=== PATIENT | female | born 1965 | race Caucasian/White ===

== ENCOUNTER 2017-03-27 19:07 | Emergency (ER) | payer MEDICAID ==
[~2017-03-27] VITALS: Ht 154.9 cm; Wt 89.4 kg
[~2017-03-27 19:07] MED LIST: ASPI-621 PO; CLON2TAB PO; HYDR25TA6 PO; HYDR50TA3 PO; LORA1TAB PO; METO25TA91 PO; NICO1PAT4 TD; PRAV20TA PO; QUET100T4 PO
[2017-03-27] MEDS ORDERED: ASPIRIN 81 MG TABLET CHEW PO ONE (19:30)
[2017-03-27] MEDS ORDERED: LORazepam 2 MG/ML, 1ML IVPush ONE (19:30)
[2017-03-27] MEDS ORDERED: SODIUM CHLORIDE FLUSH 10ML SYR IVF ONE (19:30)
[2017-03-27] MEDS ORDERED: LORA-446 PO (20:01)
[2017-03-27] MEDS ORDERED: ASPIRIN 81 MG TABLET CHEW ONE ×2 (20:08→21:00)
[2017-03-27] MEDS ORDERED: LORazepam 2 MG/ML, 1ML ONE (20:09)
[2017-03-27 20:32] LABS: BLOOD UREA NITROGEN 11 mg/dL (7-18)
[2017-03-27 20:36] LABS: IS PT STATUS REG ER OR PRE ER? YES
[2017-03-27] MEDS ORDERED: LORazepam 1MG TABLET ONE (21:00)
[2017-03-27] MEDS ORDERED: LORazepam 1MG TABLET PO ONE (21:00)
[2017-03-27 21:04] VITALS: BP 165/105
== END 2017-03-27 21:32 | disposition left against medical advice (07) ==
LOC: ED 20:31
DX: R07.89 Other chest pain (principal); F41.9 Anxiety disorder, unspecified; E78.00 Pure hypercholesterolemia, unspecified; I10 Essential (primary) hypertension; F17.200 Nicotine dependence, unspecified, uncomplicated
CPT/HCPCS: 36415; 71010; 80048; 82040; 84484; 85025; 85610; 93005; 99285

== ENCOUNTER 2017-05-31 20:16 | Emergency (ER) | payer MEDICAID ==
[~2017-05-31] VITALS: Ht 154.9 cm; Wt 88.4 kg
[~2017-05-31 20:16] MED LIST changes: +LORA-446 PO
[2017-05-31 20:19] VITALS: BP 151/92
== END 2017-05-31 20:33 ==
LOC: ED 20:27
DX: Z76.0 Encounter for issue of repeat prescription (principal); F41.9 Anxiety disorder, unspecified; I10 Essential (primary) hypertension; E78.5 Hyperlipidemia, unspecified; Z90.49 Acquired absence of other specified parts of digestive tract
CPT/HCPCS: 99283

== ENCOUNTER 2017-06-25 10:32 | Emergency (ER) | payer MEDICAID ==
[~2017-06-25] VITALS: Ht 154.9 cm; Wt 85.8 kg
[2017-06-25] MEDS ORDERED: SODIUM CHLORIDE 0.9% 1,000 ML IV ONE (11:27)
[2017-06-25] MEDS ORDERED: KETOROLAC 30 MG/1 ML ONE (11:29)
[2017-06-25] MEDS ORDERED: KETOROLAC 30 MG/1 ML IVPush ONE (11:30)
[2017-06-25] MEDS ORDERED: SODIUM CHLORIDE FLUSH 10ML SYR IVF ONE (11:30)
[2017-06-25] MEDS ORDERED: SODIUM CHLORIDE 0.9% 1,000ML IVBOLUS ONE (11:30)
[2017-06-25] MEDS ORDERED: ONDANSETRON 2MG/ML, 2ML ONE (11:30)
[2017-06-25] MEDS ORDERED: ONDANSETRON 2MG/ML, 2ML IVPush ONE (11:30)
[2017-06-25 11:57] LABS: BLOOD UREA NITROGEN 12 mg/dL (7-18)
[2017-06-25 12:03] LABS: ASPARTATE AMINO TRANSFERASE 14 U/L (15-37)
[2017-06-25] MEDS ORDERED: CEFTRIAXONE PMX 1GM/50ML 50 ML ONE (13:16)
[2017-06-25] MEDS ORDERED: CEFTRIAXONE PMX 1GM/50ML 50 ML IV ONE (13:30)
[2017-06-25 13:52] VITALS: BP 107/74
== END 2017-06-25 14:05 | disposition home or self-care (01) ==
LOC: ED 12:31
DX: N30.01 Acute cystitis with hematuria (principal); D72.829 Elevated white blood cell count, unspecified; I10 Essential (primary) hypertension; F17.200 Nicotine dependence, unspecified, uncomplicated; Z90.49 Acquired absence of other specified parts of digestive tract
CPT/HCPCS: 36415; 74020; 80053; 81001; 83690; 84703; 85025; 87077; 87086; 87186; 93005; 96361; 96365; 96375; 99285; J0696; J1885; J2405; J7030

== ENCOUNTER 2017-08-09 20:55 | Emergency (ER) | payer MEDICAID ==
[~2017-08-09] VITALS: Ht 154.9 cm; Wt 88.4 kg
[~2017-08-09 20:55] MED LIST changes: +NICO1PAT13 TD; -NICO1PAT4 TD
[2017-08-09 20:57] VITALS: BP 163/99
== END 2017-08-09 22:44 | disposition left against medical advice (07) ==
LOC: ED 22:38
DX: R50.9 Fever, unspecified (principal); M79.641 Pain in right hand; R07.9 Chest pain, unspecified; Z53.21 Procedure and treatment not carried out due to patient leaving prior to being seen by health care provider
CPT/HCPCS: 93005; 99281

== ENCOUNTER 2017-08-14 21:20 | Emergency (ER) | payer MEDICAID ==
[~2017-08-14] VITALS: Ht 154.9 cm; Wt 87.4 kg
[2017-08-14 21:29] VITALS: BP 163/105
[2017-08-14] MEDS ORDERED: LIDOCAINE 1%, 20ML SQ ONE (22:00)
[2017-08-14] MEDS ORDERED: LIDOCAINE 1%, 20ML ONE (22:04)
== END 2017-08-15 00:43 | disposition home or self-care (01) ==
LOC: ED 23:59
DX: L02.413 Cutaneous abscess of right upper limb (principal); L02.414 Cutaneous abscess of left upper limb; E78.5 Hyperlipidemia, unspecified; I10 Essential (primary) hypertension; I25.2 Old myocardial infarction
CPT/HCPCS: 10061

== ENCOUNTER 2017-10-18 15:55 | Emergency (ER) | payer MEDICAID ==
[~2017-10-18] VITALS: Ht 154.9 cm; Wt 89.9 kg
[~2017-10-18 15:55] MED LIST changes: +NICO-486 TD; -NICO1PAT13 TD
[2017-10-18 15:57] VITALS: BP 154/94
== END 2017-10-18 16:49 | disposition home or self-care (01) ==
LOC: ED 16:48
DX: J02.8 Acute pharyngitis due to other specified organisms (principal); I25.2 Old myocardial infarction; I10 Essential (primary) hypertension; E78.5 Hyperlipidemia, unspecified
CPT/HCPCS: 71020; 99284

== ENCOUNTER 2017-11-06 11:06 | Emergency (ER) | payer MEDICAID ==
[~2017-11-06] VITALS: Ht 154.9 cm; Wt 89.4 kg
[2017-11-06] MEDS ORDERED: SODIUM CHLORIDE 0.9% 1,000ML IVBOLUS ONE (11:30)
[2017-11-06] MEDS ORDERED: SODIUM CHLORIDE FLUSH 10ML SYR IVF ONE (11:30)
[2017-11-06 11:50] LABS: HEMOGLOBIN 16.6 g/dL (11.7-16.4); WHITE BLOOD COUNT 8.1 x10^3/uL (3.4-10)
[2017-11-06 11:54] LABS: RAPID INFLUENZA A Negative (Negative); RAPID INFLUENZA B Negative (Negative)
[2017-11-06 11:57] LABS: BLOOD UREA NITROGEN 9 mg/dL (7-18)
[2017-11-06] MEDS ORDERED: ALBUTEROL SULFATE 2.5 MG/3 ML NPPB ONE (14:30)
[2017-11-06] MEDS ORDERED: ALBUTEROL/IPRATROPIUM 2.5MG/0.5MG, 3 ML NPPB ONE (14:30)
[2017-11-06 15:01] LABS: DAU SCREEN DISCLAIMER
[2017-11-06] MEDS ORDERED: ALBUTEROL/IPRATROPIUM 2.5MG/0.5MG, 3 ML ONE (15:39)
[2017-11-06 17:43] VITALS: BP 128/76
== END 2017-11-06 18:10 | disposition home or self-care (01) ==
LOC: ED 14:03
DX: J18.9 Pneumonia, unspecified organism (principal); J98.01 Acute bronchospasm; F15.10 Other stimulant abuse, uncomplicated; E78.5 Hyperlipidemia, unspecified; I25.2 Old myocardial infarction; I10 Essential (primary) hypertension; F17.210 Nicotine dependence, cigarettes, uncomplicated
CPT/HCPCS: 36415; 71020; 71250; 80048; 80307; 81001; 82040; 85025; 85651; 86140; 87086; 87400; 93005; 94640; 96360; 96361; 99285; J7030; J7512; J7620; G0479

== ENCOUNTER 2017-11-12 20:30 | Emergency (ER) | payer MEDICAID ==
[~2017-11-12] VITALS: Ht 154.9 cm; Wt 84.1 kg
[2017-11-12 20:55] VITALS: BP 135/87
[2017-11-12 23:03] LABS: BLOOD UREA NITROGEN 20 mg/dL (7-18)
[2017-11-12 23:16] LABS: HEMATOCRIT 47.5 % (34.6-47.8); HEMOGLOBIN 16.2 g/dL (11.7-16.4)
== END 2017-11-12 23:43 | disposition home or self-care (01) ==
LOC: ED 22:12
DX: J18.9 Pneumonia, unspecified organism (principal); F31.9 Bipolar disorder, unspecified; E78.5 Hyperlipidemia, unspecified; I10 Essential (primary) hypertension
CPT/HCPCS: 36415; 71020; 80048; 82040; 85025; 99285

== ENCOUNTER 2018-05-27 14:24 | Inpatient (IN) | payer MEDICAID ==
[~2018-05-27] VITALS: Ht 154.9 cm; Wt 184.0 kg
[~2018-05-27 14:24] MED LIST changes: +CLON1TAB23 PO
[2018-05-27] MEDS ORDERED: KETOROLAC 30 MG/1 ML ONE (15:56)
[2018-05-27] MEDS ORDERED: DIAZEPAM 5 MG TABLET ONE (15:56)
[2018-05-27] MEDS ORDERED: DIAZEPAM 5 MG TABLET PO ONE (16:00)
[2018-05-27] MEDS ORDERED: KETOROLAC 30 MG/1 ML IM ONE (16:00)
[2018-05-27 16:33] LABS: MICROSCOPIC AUTO
[2018-05-27 16:37] LABS: ALBUMIN 2.9 g/dL (3.4-5.0); ANION GAP 8 mmol/L (5-15); CALCIUM 7.8 mg/dL (8.5-10.1); CHLORIDE 104 mmol/L (98-107); CREATININE 0.59 mg/dL (0.55-1.02)
[2018-05-27 16:37] LABS: CULTURE INDICATED? YES
[2018-05-27 16:49] LABS: BASOPHILS # (AUTO) 0.01 x10^3/uL (0-0.1); BASOPHILS % (AUTO) 0 % (0-1); EOSINOPHILS # (AUTO) 0.04 x10^3/uL (0-0.4); EOSINOPHILS % (AUTO) 1 % (1-7); LYMPHOCYTES # (AUTO) 0.95 x10^3/uL (1-3.4); LYMPHOCYTES % (AUTO) 12 % (22-44); MD SCAN; MEAN CORPUSCULAR HEMOGLOBIN 26.2 pg (27.0-34.8); MEAN CORPUSCULAR HGB CONC 34.1 g/dL (32.4-35.8); MEAN CORPUSCULAR VOLUME 76.9 fL (80-100); MEAN PLATELET VOLUME 8.9 fL (7.4-10.4); MONOCYTES # (AUTO) 0.41 x10^3/uL (0.2-0.8); MONOCYTES % (AUTO) 5 % (2-9); NEUTROPHILS # (AUTO) 6.46 x10^3/uL (1.8-6.8); NEUTROPHILS % (AUTO) 82 % (42-75); PLATELET COUNT 119 x10^3/uL (130-400); RED BLOOD COUNT 6.08 x10^6/uL (3.82-5.3); RED CELL DISTRIBUTION WIDTH 14.4 % (9.6-15.2)
[2018-05-27] MEDS ORDERED: POTASSIUM CHLORIDE 20 MEQ TAB.ER.PRT PO ONE (17:00)
[2018-05-27] MEDS ORDERED: DOXYCYCLINE 100MG TABLET PO ONE (17:00)
[2018-05-27] MEDS ORDERED: CEFTRIAXONE PMX 1GM/50ML 50 ML ONE (17:10)
[2018-05-27] MEDS ORDERED: ACETAMINOPHEN 325 MG TABLET ONE (17:11)
[2018-05-27] MEDS ORDERED: POTASSIUM CHLORIDE 20 MEQ TAB.ER.PRT ONE (17:11)
[2018-05-27] MEDS ORDERED: AZITHROMYCIN 500 MG in SODIUM CHLORIDE 0.9% 250 ML IV ONE (17:30)
[2018-05-27] MEDS ORDERED: CEFTRIAXONE PMX 1GM/50ML 50 ML IVPB ONE (17:30)
[2018-05-27] MEDS ORDERED: SODIUM CHLORIDE FLUSH 10ML SYR IVF ONE (17:30)
[2018-05-27] MEDS ORDERED: ACETAMINOPHEN 325 MG TABLET PO ONE (17:30)
[2018-05-27] MEDS: AZITHROMYCIN 500 MG in SODIUM CHLORIDE 0.9% 250 ML IV SCH (17:48)
[2018-05-27 17:51] LABS: TROPONIN I 0.992 ng/mL (0.000-0.045)
[2018-05-27] MEDS ORDERED: OMNIPAQUE 350 MG/ML, 100ML BOTTLE ONE (18:00)
[2018-05-27] MEDS ORDERED: GUAIFENESIN/DM 200-20MG, 10ML UDC PO PRN (18:00)
[2018-05-27] MEDS ORDERED: METHOCARBAMOL 750 MG TABLET PO PRN (18:00)
[2018-05-27] MEDS ORDERED: CEFTRIAXONE PMX 1GM/50ML 50 ML IV SCH (18:00)
[2018-05-27] MEDS ORDERED: hydrALAzine 20 MG/ML, 1ML IVPush PRN (18:00)
[2018-05-27] MEDS ORDERED: HEPARIN 5,000 UNITS/ML, 1ML SQ SCH (18:00)
[2018-05-27] MEDS ORDERED: POLYETHYLENE GLYCOL 17 GM PACKET PO PRN (18:00)
[2018-05-27] MEDS ORDERED: BISACODYL 10 MG SUPP PR PRN (18:00)
[2018-05-27] MEDS ORDERED: ENOXAPARIN 80 MG/0.8 ML SQ ONE (19:00)
[2018-05-27 20:00] VITALS: BP 118/78
[2018-05-27] MEDS: PRAVASTATIN 20 MG TABLET PO SCH (21:00)
[2018-05-27] MEDS: NICOTINE 14MG/24 HR PATCH.TD24 TD SCH (21:00)
[2018-05-27] MEDS: NS + 20MEQ KCL 1,000 ML IV SCH (21:01)
[2018-05-27 21:15] VITALS: BP 118/78
[2018-05-27 23:46] LABS: TROPONIN I 0.943 ng/mL (0.000-0.045)
[2018-05-28] MEDS: ACETAMINOPHEN 325 MG TABLET PO PRN ×3 (01:44→19:31)
[2018-05-28 01:45] VITALS: BP 100/62
[2018-05-28 05:33] LABS: BASOPHILS # (AUTO) 0.01 x10^3/uL (0-0.1); BASOPHILS % (AUTO) 0 % (0-1); EOSINOPHILS # (AUTO) 0.06 x10^3/uL (0-0.4); EOSINOPHILS % (AUTO) 1 % (1-7); LYMPHOCYTES # (AUTO) 1.15 x10^3/uL (1-3.4); LYMPHOCYTES % (AUTO) 16 % (22-44); MD NO; MEAN CORPUSCULAR HEMOGLOBIN 26.3 pg (27.0-34.8); MEAN CORPUSCULAR HGB CONC 33.7 g/dL (32.4-35.8); MEAN PLATELET VOLUME 7.9 fL (7.4-10.4); MONOCYTES % (AUTO) 7 % (2-9); NEUTROPHILS # (AUTO) 5.58 x10^3/uL (1.8-6.8); NEUTROPHILS % (AUTO) 76 % (42-75); PLATELET COUNT 240 x10^3/uL (130-400); RED BLOOD COUNT 5.79 x10^6/uL (3.82-5.3); RED CELL DISTRIBUTION WIDTH 14.9 % (9.6-15.2)
[2018-05-28 05:48] LABS: CHLORIDE 107 mmol/L (98-107)
[2018-05-28 05:59] LABS: ALANINE AMINOTRANSFERASE 18 U/L (12-78); ALBUMIN 2.8 g/dL (3.4-5.0); ALKALINE PHOSPHATASE 92 U/L (45-117); ANION GAP 7 mmol/L (5-15); BILIRUBIN,TOTAL 0.8 mg/dL (0.2-1.0); CALCIUM 8.1 mg/dL (8.5-10.1); CREATININE 0.65 mg/dL (0.55-1.02); TOTAL PROTEIN 6.8 g/dL (6.4-8.2)
[2018-05-28] MEDS: ASPIRIN 81 MG TABLET EC PO SCH (06:16)
[2018-05-28 08:03] VITALS: BP 137/85
[2018-05-28] MEDS ORDERED: HYDROCHLOROTHIAZIDE 25 MG TABLET PO SCH (09:00)
[2018-05-28] MEDS: SENNA/DOCUSATE TABLET PO SCH (09:28)
[2018-05-28] MEDS: IRON SUCROSE COMPLEX 100MG/5ML IV SCH (09:28)
[2018-05-28] MEDS: CEFTRIAXONE 1,000 MG in SODIUM CHLORIDE 0.9% 50 ML IV SCH (09:28)
[2018-05-28] MEDS: NS + 20MEQ KCL 1,000 ML IV SCH (11:52)
[2018-05-28 14:00] VITALS: BP 144/93
[2018-05-28 15:11] LABS: TROPONIN I 0.949 ng/mL (0.000-0.045)
[2018-05-28 18:53] VITALS: BP 137/75
[2018-05-28] MEDS: AZITHROMYCIN 500 MG in SODIUM CHLORIDE 0.9% 250 ML IV SCH (19:31)
[2018-05-28] MEDS: PRAVASTATIN 20 MG TABLET PO SCH (20:04)
[2018-05-28] MEDS: KETOROLAC 30 MG/1 ML IVPush PRN (20:04)
[2018-05-28] MEDS: NICOTINE 14MG/24 HR PATCH.TD24 TD SCH (20:05)
[2018-05-29 00:35] VITALS: BP 152/94
[2018-05-29] MEDS: KETOROLAC 30 MG/1 ML IVPush PRN (03:04)
[2018-05-29] MEDS: ACETAMINOPHEN 325 MG TABLET PO PRN ×3 (03:04→20:37)
[2018-05-29 05:20] LABS: BASOPHILS % (AUTO) 0 % (0-1); EOSINOPHILS % (AUTO) 2 % (1-7); LYMPHOCYTES % (AUTO) 13 % (22-44); MD NO; MEAN CORPUSCULAR HEMOGLOBIN 26.6 pg (27.0-34.8); MEAN CORPUSCULAR HGB CONC 34.2 g/dL (32.4-35.8); MEAN CORPUSCULAR VOLUME 77.7 fL (80-100); MEAN PLATELET VOLUME 7.9 fL (7.4-10.4); MONOCYTES # (AUTO) 0.29 x10^3/uL (0.2-0.8); MONOCYTES % (AUTO) 5 % (2-9); NEUTROPHILS # (AUTO) 5.24 x10^3/uL (1.8-6.8); NEUTROPHILS % (AUTO) 81 % (42-75); PLATELET COUNT 246 x10^3/uL (130-400); RED BLOOD COUNT 5.72 x10^6/uL (3.82-5.3); RED CELL DISTRIBUTION WIDTH 15.4 % (9.6-15.2)
[2018-05-29] MEDS: NS + 20MEQ KCL 1,000 ML IV SCH ×2 (05:26→17:38)
[2018-05-29] MEDS: ASPIRIN 81 MG TABLET EC PO SCH (05:26)
[2018-05-29 05:29] LABS: ALBUMIN 2.7 g/dL (3.4-5.0); ANION GAP 9 mmol/L (5-15); CALCIUM 8.1 mg/dL (8.5-10.1); CHLORIDE 106 mmol/L (98-107)
[2018-05-29 06:54] VITALS: BP 137/88
[2018-05-29] MEDS ORDERED: POTASSIUM CHLORIDE 20 MEQ TAB.ER.PRT PO SCH (08:00)
[2018-05-29] MEDS ORDERED: MAGNESIUM HYDROXIDE 8%, 30ML UDC PO PRN (08:00)
[2018-05-29] MEDS ORDERED: CYCLOBENZAPRINE 10 MG TABLET PO PRN (08:00)
[2018-05-29] MEDS ORDERED: POTASSIUM CHLORIDE 20 MEQ TAB.ER.PRT PO ONE (08:30)
[2018-05-29] MEDS: LIDODERM 5% PATCH TD SCH (09:05)
[2018-05-29] MEDS: IRON SUCROSE COMPLEX 100MG/5ML IV SCH (09:05)
[2018-05-29] MEDS: SENNA/DOCUSATE TABLET PO SCH (09:05)
[2018-05-29] MEDS: DOCUSATE 100 MG CAPSULE PO SCH ×2 (09:05→20:09)
[2018-05-29] MEDS: CEFTRIAXONE 1,000 MG in SODIUM CHLORIDE 0.9% 50 ML IV SCH (09:27)
[2018-05-29] MEDS: HYDROcodone/APAP 5/325 TABLET PO PRN ×2 (10:01→23:44)
[2018-05-29 12:16] VITALS: BP 130/83
[2018-05-29] MEDS: ENOXAPARIN 40 MG/0.4 ML SQ SCH (14:27)
[2018-05-29] MEDS: POTASSIUM CHLORIDE 20 MEQ TAB.ER.PRT PO SCH (17:38)
[2018-05-29] MEDS: PRAVASTATIN 20 MG TABLET PO SCH (20:05)
[2018-05-29] MEDS: AZITHROMYCIN 500 MG in SODIUM CHLORIDE 0.9% 250 ML IV SCH (20:05)
[2018-05-29] MEDS: NICOTINE 14MG/24 HR PATCH.TD24 TD SCH (20:09)
[2018-05-29 20:36] VITALS: BP 168/122
[2018-05-29] MEDS: ONDANSETRON 2MG/ML, 2ML IVPush PRN (20:59)
[2018-05-29 22:02] VITALS: BP 131/83
[2018-05-30] MEDS ORDERED: FUROSEMIDE 20 MG/2 ML IV ONE (00:30)
[2018-05-30] MEDS ORDERED: POTASSIUM CHLORIDE 20 MEQ TAB.ER.PRT PO ONE (00:30)
[2018-05-30 00:59] VITALS: BP 134/83
[2018-05-30 05:36] LABS: ALBUMIN 2.9 g/dL (3.4-5.0); ANION GAP 7 mmol/L (5-15); BASOPHILS # (AUTO) 0.02 x10^3/uL (0-0.1); BASOPHILS % (AUTO) 0 % (0-1); CALCIUM 8.6 mg/dL (8.5-10.1); CHLORIDE 103 mmol/L (98-107); EOSINOPHILS # (AUTO) 0.01 x10^3/uL (0-0.4); EOSINOPHILS % (AUTO) 0 % (1-7); LYMPHOCYTES # (AUTO) 0.79 x10^3/uL (1-3.4); LYMPHOCYTES % (AUTO) 13 % (22-44); MD NO; MEAN CORPUSCULAR HEMOGLOBIN 26.2 pg (27.0-34.8); MEAN CORPUSCULAR HGB CONC 33.6 g/dL (32.4-35.8); MEAN CORPUSCULAR VOLUME 78.1 fL (80-100); MEAN PLATELET VOLUME 8.2 fL (7.4-10.4); MONOCYTES # (AUTO) 0.27 x10^3/uL (0.2-0.8); MONOCYTES % (AUTO) 4 % (2-9); NEUTROPHILS % (AUTO) 83 % (42-75); PLATELET COUNT 268 x10^3/uL (130-400); RED BLOOD COUNT 6.04 x10^6/uL (3.82-5.3); RED CELL DISTRIBUTION WIDTH 15.6 % (9.6-15.2)
[2018-05-30 05:42] LABS: ALANINE AMINOTRANSFERASE 19 U/L (12-78); ALKALINE PHOSPHATASE 89 U/L (45-117); BILIRUBIN,TOTAL 0.7 mg/dL (0.2-1.0); CREATININE 0.73 mg/dL (0.55-1.02); TOTAL PROTEIN 7.4 g/dL (6.4-8.2)
[2018-05-30] MEDS: ASPIRIN 81 MG TABLET EC PO SCH (05:43)
[2018-05-30] MEDS: ACETAMINOPHEN 325 MG TABLET PO PRN ×3 (05:46→19:48)
[2018-05-30] MEDS: MEROPENEM 1 GM in SODIUM CHLORIDE 0.9% 100 ML IV SCH ×3 (06:46→22:03)
[2018-05-30] MEDS ORDERED: FUROSEMIDE 40 MG/4 ML IV ONE (07:00)
[2018-05-30 07:21] VITALS: BP 96/57
[2018-05-30] MEDS: IRON SUCROSE COMPLEX 100MG/5ML IV SCH (07:57)
[2018-05-30] MEDS: POTASSIUM CHLORIDE 20 MEQ TAB.ER.PRT PO SCH ×2 (07:58→17:41)
[2018-05-30] MEDS: LIDODERM 5% PATCH TD SCH (07:59)
[2018-05-30] MEDS: DOCUSATE 100 MG CAPSULE PO SCH ×2 (08:06→19:49)
[2018-05-30] MEDS: SENNA/DOCUSATE TABLET PO SCH (08:07)
[2018-05-30] MEDS: HYDROcodone/APAP 5/325 TABLET PO PRN ×2 (09:28→17:41)
[2018-05-30 12:28] VITALS: BP 111/70
[2018-05-30] MEDS: ENOXAPARIN 40 MG/0.4 ML SQ SCH (14:51)
[2018-05-30] MEDS: PRAVASTATIN 20 MG TABLET PO SCH (19:49)
[2018-05-30] MEDS: AZITHROMYCIN 500 MG in SODIUM CHLORIDE 0.9% 250 ML IV SCH (19:49)
[2018-05-30 19:51] VITALS: BP 114/75
[2018-05-30] MEDS ORDERED: SUMATRIPTAN 25 MG TABLET PO ONE (20:30)
[2018-05-30] MEDS: ONDANSETRON 2MG/ML, 2ML IVPush PRN (20:34)
[2018-05-30] MEDS: NICOTINE 14MG/24 HR PATCH.TD24 TD SCH (20:35)
[2018-05-31 03:35] VITALS: BP 115/81
[2018-05-31 05:37] LABS: BASOPHILS # (AUTO) 0.01 x10^3/uL (0-0.1); BASOPHILS % (AUTO) 0 % (0-1); EOSINOPHILS # (AUTO) 0.01 x10^3/uL (0-0.4); EOSINOPHILS % (AUTO) 0 % (1-7); LYMPHOCYTES # (AUTO) 0.87 x10^3/uL (1-3.4); LYMPHOCYTES % (AUTO) 17 % (22-44); MD NO; MEAN CORPUSCULAR HEMOGLOBIN 26.7 pg (27.0-34.8); MEAN CORPUSCULAR HGB CONC 34.6 g/dL (32.4-35.8); MEAN CORPUSCULAR VOLUME 77.2 fL (80-100); MONOCYTES # (AUTO) 0.19 x10^3/uL (0.2-0.8); MONOCYTES % (AUTO) 4 % (2-9); NEUTROPHILS # (AUTO) 4.03 x10^3/uL (1.8-6.8); NEUTROPHILS % (AUTO) 79 % (42-75); PLATELET COUNT 282 x10^3/uL (130-400); RED BLOOD COUNT 5.84 x10^6/uL (3.82-5.3); RED CELL DISTRIBUTION WIDTH 15.9 % (9.6-15.2)
[2018-05-31 05:52] LABS: ALBUMIN 2.5 g/dL (3.4-5.0); ANION GAP 6 mmol/L (5-15); CALCIUM 8.2 mg/dL (8.5-10.1); CHLORIDE 98 mmol/L (98-107)
[2018-05-31 05:58] LABS: ALANINE AMINOTRANSFERASE 18 U/L (12-78); ALKALINE PHOSPHATASE 72 U/L (45-117); BILIRUBIN,TOTAL 0.7 mg/dL (0.2-1.0); CREATININE 0.81 mg/dL (0.55-1.02); TOTAL PROTEIN 7.1 g/dL (6.4-8.2)
[2018-05-31] MEDS: ASPIRIN 81 MG TABLET EC PO SCH (06:12)
[2018-05-31] MEDS: MEROPENEM 1 GM in SODIUM CHLORIDE 0.9% 100 ML IV SCH ×2 (06:12→16:03)
[2018-05-31 06:58] VITALS: BP 137/84
[2018-05-31] MEDS: IRON SUCROSE COMPLEX 100MG/5ML IV SCH (08:52)
[2018-05-31] MEDS: DOCUSATE 100 MG CAPSULE PO SCH ×2 (08:52→20:38)
[2018-05-31] MEDS: ACETAMINOPHEN 325 MG TABLET PO PRN (08:52)
[2018-05-31] MEDS: POTASSIUM CHLORIDE 20 MEQ TAB.ER.PRT PO SCH ×2 (08:52→18:04)
[2018-05-31] MEDS: SENNA/DOCUSATE TABLET PO SCH (08:53)
[2018-05-31] MEDS: HYDROcodone/APAP 5/325 TABLET PO PRN (09:07)
[2018-05-31] MEDS: LIDODERM 5% PATCH TD SCH (09:07)
[2018-05-31 12:19] VITALS: BP 89/62
[2018-05-31] MEDS ORDERED: LIDOCAINE-MPF 1%, 2ML ONE (12:28)
[2018-05-31 14:52] LABS: GLUCOSE, CSF 63 mg/dL (40-80); TOTAL PROTEIN,CSF 52 mg/dL (15-45)
[2018-05-31 15:01] VITALS: BP 105/70
[2018-05-31] MEDS: ACETAMINOPHEN 325 MG TABLET PO SCH ×2 (16:04→20:38)
[2018-05-31] MEDS: ENOXAPARIN 40 MG/0.4 ML SQ SCH (16:04)
[2018-05-31 19:08] VITALS: BP 108/72
[2018-05-31] MEDS: AZITHROMYCIN 500 MG in SODIUM CHLORIDE 0.9% 250 ML IV SCH (19:30)
[2018-05-31] MEDS: PRAVASTATIN 20 MG TABLET PO SCH (20:38)
[2018-05-31] MEDS: NICOTINE 14MG/24 HR PATCH.TD24 TD SCH (20:38)
[2018-06-01 02:20] VITALS: BP 105/65
[2018-06-01] MEDS: ACETAMINOPHEN 325 MG TABLET PO SCH ×2 (03:00→09:15)
[2018-06-01 05:44] LABS: CHOL/HDL RATIO 7.2; LDL/HDL RATIO 2.7 (0.5-3.0)
[2018-06-01] MEDS: METOPROLOL SUCCINATE 25 MG TAB.ER.24H PO SCH ×2 (06:00→09:17)
[2018-06-01] MEDS: ASPIRIN 81 MG TABLET EC PO SCH (06:25)
[2018-06-01 07:15] VITALS: BP 113/77
[2018-06-01] MEDS: LIDODERM 5% PATCH TD SCH ×2 (08:00→09:15)
[2018-06-01] MEDS: DOCUSATE 100 MG CAPSULE PO SCH (09:00)
[2018-06-01] MEDS: SENNA/DOCUSATE TABLET PO SCH (09:00)
[2018-06-01] MEDS: POTASSIUM CHLORIDE 20 MEQ TAB.ER.PRT PO SCH (09:15)
[2018-06-01] MEDS ORDERED: AMOXICILLIN 500 MG CAPSULE PO SCH (21:00)
[2018-06-01] MEDS ORDERED: DOXYCYCLINE 100MG CAP PO SCH (21:00)
== END 2018-06-01 11:00 | disposition left against medical advice (07) | DRG 193 ==
LOC: ED 16:28 → EDIP 17:10 → 4EST 19:08 → UNDODISIN 06-01 11:20
PROVIDERS: ADMIT Internal Medicine; ATTEND Hospitalist
PROC: 009U3ZX Drainage of Spinal Canal, Percutaneous Approach, Diagnostic (ICD-10-PCS; principal; 2018-05-31)
PROC: B01B1ZZ Fluoroscopy of Spinal Cord using Low Osmolar Contrast (ICD-10-PCS; 2018-05-31)
DX: J18.0 Bronchopneumonia, unspecified organism (principal); E43 Unspecified severe protein-calorie malnutrition; Z68.45 Body mass index [BMI] 70 or greater, adult; E87.1 Hypo-osmolality and hyponatremia; I47.2 Ventricular tachycardia; N39.0 Urinary tract infection, site not specified; B96.20 Unspecified Escherichia coli [E. coli] as the cause of diseases classified elsewhere; D69.6 Thrombocytopenia, unspecified; E61.1 Iron deficiency; E66.9 Obesity, unspecified; E78.5 Hyperlipidemia, unspecified; E87.6 Hypokalemia; F15.10 Other stimulant abuse, uncomplicated; F17.210 Nicotine dependence, cigarettes, uncomplicated; F31.9 Bipolar disorder, unspecified; F41.9 Anxiety disorder, unspecified; I05.9 Rheumatic mitral valve disease, unspecified; I10 Essential (primary) hypertension; I25.10 Atherosclerotic heart disease of native coronary artery without angina pectoris; I25.2 Old myocardial infarction; K59.00 Constipation, unspecified; M51.36 Other intervertebral disc degeneration, lumbar region; R09.02 Hypoxemia; S39.012A Strain of muscle, fascia and tendon of lower back, initial encounter; Z82.49 Family history of ischemic heart disease and other diseases of the circulatory system; W18.39XA Other fall on same level, initial encounter; Y93.89 Activity, other specified; Y92.89 Other specified places as the place of occurrence of the external cause; Y99.8 Other external cause status; Z90.49 Acquired absence of other specified parts of digestive tract
CPT/HCPCS: 36415; 62270; 70450; 71045; 71275; 80048; 80053; 80061; 80074; 81001; 82040; 82728; 82945; 83540; 83550; 83605; 83735; 83880; 84100; 84145; 84157; 84484; 85025; 87040; 87070; 87077; 87081; 87086; 87186; 87205; 87806; 87880; 89051; 93005; 93306; 96372; 99285; J0456; J0696; J1650; J1756; J1885; J1940; J2185; J2405; J3480; J3490; Q9967; G0475; J0360; J7050

== ENCOUNTER 2018-06-18 15:02 | Emergency (ER) | payer MEDICAID ==
[~2018-06-18] VITALS: Ht 154.9 cm; Wt 84.2 kg
[2018-06-18 15:16] VITALS: BP 152/102
== END 2018-06-18 15:56 ==
LOC: ED 15:49
DX: F41.1 Generalized anxiety disorder (principal); I11.9 Hypertensive heart disease without heart failure; I25.10 Atherosclerotic heart disease of native coronary artery without angina pectoris; I25.2 Old myocardial infarction; E78.5 Hyperlipidemia, unspecified; F31.9 Bipolar disorder, unspecified; Z90.49 Acquired absence of other specified parts of digestive tract; Z76.0 Encounter for issue of repeat prescription
CPT/HCPCS: 99284

== ENCOUNTER 2018-06-22 20:22 | Emergency (ER) | payer MEDICAID ==
[~2018-06-22] VITALS: Ht 154.9 cm; Wt 75.0 kg
[2018-06-22 20:37] VITALS: BP 183/117
[2018-06-22] MEDS ORDERED: SODIUM CHLORIDE FLUSH 10ML SYR IVF ONE (21:00)
[2018-06-22] MEDS ORDERED: SODIUM CHLORIDE 0.9% 1,000ML IVBOLUS ONE (21:00)
[2018-06-22 21:06] LABS: BASOPHILS # (AUTO) 0.03 x10^3/uL (0-0.1); BASOPHILS % (AUTO) 0 % (0-1); EOSINOPHILS # (AUTO) 0.22 x10^3/uL (0-0.4); EOSINOPHILS % (AUTO) 3 % (1-7); LYMPHOCYTES # (AUTO) 2.52 x10^3/uL (1-3.4); LYMPHOCYTES % (AUTO) 31 % (22-44); MD NO; MEAN CORPUSCULAR HGB CONC 34.6 g/dL (32.4-35.8); MEAN PLATELET VOLUME 7.9 fL (7.4-10.4); MONOCYTES # (AUTO) 0.48 x10^3/uL (0.2-0.8); MONOCYTES % (AUTO) 6 % (2-9); NEUTROPHILS # (AUTO) 4.84 x10^3/uL (1.8-6.8); NEUTROPHILS % (AUTO) 60 % (42-75); PLATELET COUNT 245 x10^3/uL (130-400); RED BLOOD COUNT 5.82 x10^6/uL (3.82-5.3); RED CELL DISTRIBUTION WIDTH 16.8 % (9.6-15.2)
[2018-06-22 21:14] LABS: ALANINE AMINOTRANSFERASE 19 U/L (12-78); ALBUMIN 3.6 g/dL (3.4-5.0); ANION GAP 6 mmol/L (5-15); CALCIUM 8.8 mg/dL (8.5-10.1); CHLORIDE 112 mmol/L (98-107)
[2018-06-22 21:17] LABS: ALKALINE PHOSPHATASE 111 U/L (45-117); BILIRUBIN,TOTAL 0.5 mg/dL (0.2-1.0); CREATININE 0.96 mg/dL (0.55-1.02); TOTAL PROTEIN 7.6 g/dL (6.4-8.2)
== END 2018-06-22 23:47 | disposition home or self-care (01) ==
LOC: ED 23:40
DX: J20.9 Acute bronchitis, unspecified (principal); F19.20 Other psychoactive substance dependence, uncomplicated; I25.2 Old myocardial infarction; I25.10 Atherosclerotic heart disease of native coronary artery without angina pectoris; I10 Essential (primary) hypertension; E78.5 Hyperlipidemia, unspecified; Z72.9 Problem related to lifestyle, unspecified; F17.210 Nicotine dependence, cigarettes, uncomplicated; F31.9 Bipolar disorder, unspecified
CPT/HCPCS: 36415; 71046; 80053; 85025; 93005; 99285; 99406; J7030

== ENCOUNTER 2018-07-15 13:16 | Inpatient (IN) | payer MEDICAID ==
[~2018-07-15] VITALS: Ht 154.9 cm; Wt 72.1 kg
[2018-07-15 14:05] LABS: BASOPHILS # (AUTO) 0.04 x10^3/uL (0-0.1); BASOPHILS % (AUTO) 0 % (0-1); EOSINOPHILS % (AUTO) 2 % (1-7); LYMPHOCYTES # (AUTO) 2.46 x10^3/uL (1-3.4); LYMPHOCYTES % (AUTO) 28 % (22-44); MD NO; MEAN CORPUSCULAR HEMOGLOBIN 28.4 pg (27.0-34.8); MEAN CORPUSCULAR HGB CONC 35.1 g/dL (32.4-35.8); MEAN CORPUSCULAR VOLUME 80.8 fL (80-100); MEAN PLATELET VOLUME 7.7 fL (7.4-10.4); MONOCYTES # (AUTO) 0.54 x10^3/uL (0.2-0.8); MONOCYTES % (AUTO) 6 % (2-9); NEUTROPHILS # (AUTO) 5.66 x10^3/uL (1.8-6.8); NEUTROPHILS % (AUTO) 64 % (42-75); PLATELET COUNT 270 x10^3/uL (130-400); RED BLOOD COUNT 5.78 x10^6/uL (3.82-5.3); RED CELL DISTRIBUTION WIDTH 15.9 % (9.6-15.2)
[2018-07-15 14:10] LABS: MICROSCOPIC INDICATED
[2018-07-15 14:11] LABS: CULTURE INDICATED? YES
[2018-07-15 14:14] LABS: ALBUMIN 3.7 g/dL (3.4-5.0); ANION GAP 5 mmol/L (5-15); CALCIUM 8.8 mg/dL (8.5-10.1); CHLORIDE 110 mmol/L (98-107); CREATININE 0.67 mg/dL (0.55-1.02)
[2018-07-15 14:19] LABS: AMPHETAMINE SCREEN, URINE Negative (Negative); BARBITURATE SCREEN, URINE Negative (Negative); BENZODIAZEPINE SCREEN, URINE Negative (Negative); CANNABINOID SCREEN, URINE Negative (Negative); COCAINE SCREEN, URINE Negative (Negative); METHADONE SCREEN, URINE Negative (Negative); OPIATE SCREEN, URINE Negative (Negative)
[2018-07-15 14:24] LABS: TROPONIN I 0.277 ng/mL (0.000-0.045)
[2018-07-15] MEDS ORDERED: SODIUM CHLORIDE 0.9% 1,000ML IVBOLUS ONE (15:00)
[2018-07-15] MEDS ORDERED: CARV6.252 PO (15:25)
[2018-07-15] MEDS ORDERED: ASPIRIN 81 MG TABLET CHEW ONE (16:17)
[2018-07-15] MEDS ORDERED: ASPIRIN 81 MG TABLET CHEW PO ONE (16:30)
[2018-07-15] MEDS ORDERED: ACETAMINOPHEN 325 MG TABLET PO PRN (17:00)
[2018-07-15] MEDS ORDERED: ONDANSETRON 2MG/ML, 2ML IVPush PRN (17:00)
[2018-07-15] MEDS ORDERED: KETOROLAC 30 MG/1 ML IV PRN (17:00)
[2018-07-15] MEDS ORDERED: hydrALAzine 20 MG/ML, 1ML IVPush PRN (17:00)
[2018-07-15] MEDS ORDERED: ENOXAPARIN 40 MG/0.4 ML SQ SCH (17:00)
[2018-07-15] MEDS ORDERED: DOCUSATE 100 MG CAPSULE PO PRN (17:00)
[2018-07-15] MEDS ORDERED: BACLOFEN 10 MG TABLET PO PRN (17:00)
[2018-07-15] MEDS ORDERED: GUAIFENESIN/COD200MG-20MG/10ML LIQUID PO PRN (17:00)
[2018-07-15 19:59] VITALS: BP 149/85
[2018-07-15 20:15] VITALS: BP 149/85
[2018-07-15 20:17] VITALS: BP_SYST 156; BP_SYST 174; BP_DIAS 84; BP_DIAS 97
[2018-07-15 20:36] LABS: TROPONIN I 0.265 ng/mL (0.000-0.045)
[2018-07-15] MEDS: LISINOPRIL 5 MG TABLET PO SCH (20:52)
[2018-07-15] MEDS: CARVEDILOL 6.25 MG TABLET PO SCH (20:53)
[2018-07-15] MEDS ORDERED: PRAVASTATIN 20 MG TABLET PO SCH (21:00)
[2018-07-16 01:18] VITALS: BP 120/68
[2018-07-16 02:16] LABS: BASOPHILS # (AUTO) 0.03 x10^3/uL (0-0.1); BASOPHILS % (AUTO) 1 % (0-1); EOSINOPHILS # (AUTO) 0.17 x10^3/uL (0-0.4); EOSINOPHILS % (AUTO) 2 % (1-7); LYMPHOCYTES # (AUTO) 2.88 x10^3/uL (1-3.4); LYMPHOCYTES % (AUTO) 40 % (22-44); MD NO; MEAN CORPUSCULAR HEMOGLOBIN 27.8 pg (27.0-34.8); MEAN CORPUSCULAR HGB CONC 34.3 g/dL (32.4-35.8); MONOCYTES % (AUTO) 7 % (2-9); NEUTROPHILS # (AUTO) 3.64 x10^3/uL (1.8-6.8); NEUTROPHILS % (AUTO) 50 % (42-75); PLATELET COUNT 233 x10^3/uL (130-400); RED BLOOD COUNT 5.29 x10^6/uL (3.82-5.3); RED CELL DISTRIBUTION WIDTH 16.2 % (9.6-15.2)
[2018-07-16 02:29] LABS: TROPONIN I 0.276 ng/mL (0.000-0.045)
[2018-07-16 02:32] LABS: ANION GAP 5 mmol/L (5-15); CALCIUM 8.1 mg/dL (8.5-10.1); CHLORIDE 112 mmol/L (98-107); CHOLESTEROL, TOTAL 113 mg/dL (140-239); CREATININE 0.71 mg/dL (0.55-1.02); TRIGLYCERIDES 188 mg/dL (50-200); VLDL CHOLESTEROL 38 mg/dL (0-25)
[2018-07-16 02:40] LABS: CHOL/HDL RATIO 4.2; HDL CHOL % 24 % (28-40); HDL CHOLESTEROL (DIRECT) 27 mg/dL (40-60); LDL CHOLESTEROL,CALCULATED 48 mg/dL (54-169); LDL/HDL RATIO 1.8 (0.5-3.0)
[2018-07-16] MEDS ORDERED: ASPIRIN 325 MG TABLET PO SCH (06:00)
[2018-07-16 07:28] VITALS: BP 166/97
[2018-07-16] MEDS: LISINOPRIL 5 MG TABLET PO SCH (07:57)
[2018-07-16] MEDS: CARVEDILOL 6.25 MG TABLET PO SCH (07:57)
== END 2018-07-16 09:51 | disposition left against medical advice (07) | DRG 282 ==
LOC: ED 16:14 → EDIP 16:15 → ED 16:39 → 5SO 20:00
PROVIDERS: ADMIT Hospitalist; ATTEND Hospitalist
PROC: 0T9B70Z Drainage of Bladder with Drainage Device, Via Natural or Artificial Opening (ICD-10-PCS; principal; 2018-07-15)
DX: I21.9 Acute myocardial infarction, unspecified (principal); I10 Essential (primary) hypertension; I25.10 Atherosclerotic heart disease of native coronary artery without angina pectoris; E78.5 Hyperlipidemia, unspecified; F31.9 Bipolar disorder, unspecified; F41.9 Anxiety disorder, unspecified; F17.210 Nicotine dependence, cigarettes, uncomplicated; Z53.21 Procedure and treatment not carried out due to patient leaving prior to being seen by health care provider; I34.0 Nonrheumatic mitral (valve) insufficiency; Z90.49 Acquired absence of other specified parts of digestive tract; Z82.49 Family history of ischemic heart disease and other diseases of the circulatory system; I25.2 Old myocardial infarction
CPT/HCPCS: 36415; 70551; 71046; 80048; 80061; 80307; 81001; 82040; 82140; 82550; 83735; 84100; 84443; 84484; 85025; 87086; 93005; 99285; J1650; J7030

== ENCOUNTER 2018-10-24 07:42 | Emergency (ER) | payer MEDICAID ==
[~2018-10-24] VITALS: Ht 154.9 cm; Wt 87.2 kg
[~2018-10-24 07:42] MED LIST changes: +CARV6.252 PO
[2018-10-24 07:45] VITALS: BP 160/93
[2018-10-24 08:25] LABS: BASOPHILS # (AUTO) 0.05 x10^3/uL (0-0.1); BASOPHILS % (AUTO) 1 % (0-1); EOSINOPHILS # (AUTO) 0.27 x10^3/uL (0-0.4); EOSINOPHILS % (AUTO) 3 % (1-7); LYMPHOCYTES % (AUTO) 23 % (22-44); MD NO; MEAN CORPUSCULAR HEMOGLOBIN 28.6 pg (27.0-34.8); MEAN CORPUSCULAR HGB CONC 34.5 g/dL (32.4-35.8); MEAN CORPUSCULAR VOLUME 82.8 fL (80-100); MEAN PLATELET VOLUME 7.8 fL (7.4-10.4); MONOCYTES # (AUTO) 0.55 x10^3/uL (0.2-0.8); MONOCYTES % (AUTO) 6 % (2-9); NEUTROPHILS # (AUTO) 6.18 x10^3/uL (1.8-6.8); NEUTROPHILS % (AUTO) 68 % (42-75); PLATELET COUNT 298 x10^3/uL (130-400); RED BLOOD COUNT 5.72 x10^6/uL (3.82-5.3); RED CELL DISTRIBUTION WIDTH 14.2 % (9.6-15.2)
[2018-10-24 08:36] LABS: ALANINE AMINOTRANSFERASE 22 U/L (12-78); ALBUMIN 3.3 g/dL (3.4-5.0); ANION GAP 8 mmol/L (5-15); CHLORIDE 109 mmol/L (98-107); CREATININE 0.76 mg/dL (0.55-1.02)
[2018-10-24 08:38] LABS: ALKALINE PHOSPHATASE 95 U/L (45-117); BILIRUBIN,TOTAL 0.4 mg/dL (0.2-1.0); TOTAL PROTEIN 6.9 g/dL (6.4-8.2)
[2018-10-24 08:42] LABS: MICROSCOPIC INDICATED
[2018-10-24 08:47] LABS: CULTURE INDICATED? YES
[2018-10-24] MEDS ORDERED: KETOROLAC 30 MG/1 ML ONE (08:59)
[2018-10-24] MEDS ORDERED: KETOROLAC 30 MG/1 ML IM ONE (09:00)
[2018-10-24] MEDS ORDERED: CEFTRIAXONE 1,000 MG IM ONE (09:30)
[2018-10-24] MEDS ORDERED: LIDOCAINE-MPF 1%, 2ML ONE (09:35)
[2018-10-24] MEDS ORDERED: CEFTRIAXONE 1,000 MG ONE (09:35)
== END 2018-10-24 09:55 | disposition home or self-care (01) ==
LOC: ED 09:26
DX: N30.00 Acute cystitis without hematuria (principal); I10 Essential (primary) hypertension; I25.10 Atherosclerotic heart disease of native coronary artery without angina pectoris; I25.2 Old myocardial infarction; E78.5 Hyperlipidemia, unspecified; F31.9 Bipolar disorder, unspecified; F41.1 Generalized anxiety disorder; Z72.9 Problem related to lifestyle, unspecified; Z90.49 Acquired absence of other specified parts of digestive tract; F17.210 Nicotine dependence, cigarettes, uncomplicated
CPT/HCPCS: 36415; 80053; 81001; 85025; 87077; 87086; 96372; 99283; J0696; J1885; 87186

== ENCOUNTER 2018-12-04 09:59 | Emergency (ER) | payer MEDICAID ==
[~2018-12-04] VITALS: Ht 154.9 cm; Wt 85.8 kg
[~2018-12-04 09:59] MED LIST changes: -ASPI-621 PO; +ASPI81TA45 PO
[2018-12-04 10:14] VITALS: BP 160/99
[2018-12-04] MEDS ORDERED: LIDOCAINE-MPF 1%, 5ML INFIL ONE (10:30)
--- NOTE | 2018-12-04 10:56 | NUR ---
US NOTIFIED OF NEW STUDY IN ROOM 4.
[2018-12-04] MEDS ORDERED: LIDOCAINE-MPF 1%, 5ML ONE (11:20)
--- NOTE | 2018-12-04 11:54 | NUR ---
PT RESTING IN BED. HEADPHONES ON PT AND PHONE IN HAND. RESPIRATIONS EVEN AND UNLABORED. AWAITING US WHO IS WITH OTHER PT AT THIS TIME.
== END 2018-12-04 13:46 | disposition home or self-care (01) ==
LOC: ED 10:54
DX: I80.8 Phlebitis and thrombophlebitis of other sites (principal); L03.114 Cellulitis of left upper limb; F15.129 Other stimulant abuse with intoxication, unspecified; I10 Essential (primary) hypertension
CPT/HCPCS: 99284

== ENCOUNTER 2019-04-06 20:34 | Emergency (ER) | payer MEDICAID ==
[~2019-04-06] VITALS: Ht 154.9 cm; Wt 88.0 kg
[2019-04-06] MEDS ORDERED: KETOROLAC 30 MG/1 ML ONE (21:11)
[2019-04-06] MEDS ORDERED: DIAZEPAM 5 MG TABLET ONE (21:11)
[2019-04-06] MEDS ORDERED: KETOROLAC 30 MG/1 ML IM ONE (21:30)
[2019-04-06] MEDS ORDERED: DIAZEPAM 5 MG TABLET PO ONE (21:30)
[2019-04-06 21:50] VITALS: BP 120/82
--- NOTE | 2019-04-06 21:51 | NUR ---
pt given dc instructions and script, educated regarding rx for robaxan. pt a&o, resps even and unlabored. pt states symptoms relieved by meds given. pt educated not to drive today, states will be driving her home. pt amb to dc desk with steady gait.
== END 2019-04-06 21:52 | disposition home or self-care (01) ==
LOC: ED 21:05
DX: G89.11 Acute pain due to trauma (principal); M47.896 Other spondylosis, lumbar region; F17.210 Nicotine dependence, cigarettes, uncomplicated; W01.0XXA Fall on same level from slipping, tripping and stumbling without subsequent striking against object, initial encounter; Y93.89 Activity, other specified; Y92.89 Other specified places as the place of occurrence of the external cause; Y99.8 Other external cause status
CPT/HCPCS: 72110; 96372; 99283; J1885

== ENCOUNTER 2019-06-10 18:18 | Emergency (ER) | payer MEDICAID ==
[~2019-06-10] VITALS: Ht 154.9 cm; Wt 88.0 kg
[2019-06-10 18:20] VITALS: BP 147/98
--- NOTE | 2019-06-10 18:35 | NUR ---
PT ARRIVED TO ROOM 5 AMBULATORY. PT DRESSED IN GOWN AND RESTING ON GURNEY. PT C/O [place] BITES ABOUT 5 DAYS AGO AND STATES "THEY'RE REALLY ITCHY. I KEEP GETTING BIT AND I DON'T KNOW WHY." PT AAO X 4, SCATTERED RED RAISED AREAS ON BODY. NAD, ALL FALL PRECAUTIONS IN PLACE.
--- NOTE | 2019-06-10 18:38 | NUR ---
PA AT BEDSIDE, NEW ORDERS RECEIVED.
--- NOTE | 2019-06-10 18:47 | NUR ---
REPORT RECEIVED FROM VERONIKA FLORES.
--- NOTE | 2019-06-10 18:56 | NUR ---
PT GIVEN DC INSTRUCTIONS. PT'S AOX4. RESPS EVEN AND UNLABORED. NO ACUTE DISTRESS AT DC.
[2019-06-10] MEDS ORDERED: LIDOCAINE 1%, 10ML INFIL ONE (19:00)
== END 2019-06-10 18:57 | disposition home or self-care (01) ==
LOC: ED 18:46
DX: S80.861A Insect bite (nonvenomous), right lower leg, initial encounter (principal); I10 Essential (primary) hypertension; F41.9 Anxiety disorder, unspecified; I25.10 Atherosclerotic heart disease of native coronary artery without angina pectoris; I25.2 Old myocardial infarction; E78.5 Hyperlipidemia, unspecified; Z90.49 Acquired absence of other specified parts of digestive tract; F17.200 Nicotine dependence, unspecified, uncomplicated; W57.XXXA Bitten or stung by nonvenomous insect and other nonvenomous arthropods, initial encounter; Y93.89 Activity, other specified; Y92.89 Other specified places as the place of occurrence of the external cause; Y99.8 Other external cause status
CPT/HCPCS: 99282

== ENCOUNTER 2019-11-05 13:22 | Emergency (ER) | payer MEDICAID ==
[~2019-11-05] VITALS: Ht 154.9 cm; Wt 90.5 kg
[2019-11-05 13:23] VITALS: BP 132/85
[2019-11-05] MEDS ORDERED: KETOROLAC 30 MG/1 ML ONE (13:40)
[2019-11-05] MEDS ORDERED: KETOROLAC 30 MG/1 ML IM ONE (14:00)
[2019-11-05 14:09] LABS: RAPID INFLUENZA A Negative (Negative); RAPID INFLUENZA B Negative (Negative)
[2019-11-08] MEDS ORDERED: HYDR25TA6 PO (14:53)
[2019-11-08] MEDS ORDERED: CLON0.5T11 PO (14:53)
[2019-11-08] MEDS ORDERED: MULT-658 PO (14:54)
[2019-11-08] MEDS ORDERED: ASCO10004 PO (14:55)
== END 2019-11-05 14:40 | disposition home or self-care (01) ==
LOC: ED 14:20
DX: J15.9 Unspecified bacterial pneumonia (principal); I10 Essential (primary) hypertension; E78.5 Hyperlipidemia, unspecified; F17.210 Nicotine dependence, cigarettes, uncomplicated
CPT/HCPCS: 71046; 87400; 96372; 99284; J1885

== ENCOUNTER 2020-07-31 15:50 | Emergency (ER) | payer MEDICAID ==
[~2020-07-31] VITALS: Ht 180.3 cm; Wt 83.0 kg
[~2020-07-31 15:50] MED LIST changes: +ASCO100018 PO; +CLON-364 PO; +MULT-658 PO
[2020-07-31 15:53] VITALS: BP 163/104
--- NOTE | 2020-07-31 16:13 | NUR ---
PT SPEAKING TO "SISTER" (ABDIRAHMAN) ON CELL PHONE; REFUSES TO HANG UP. PT REPORTS SEVERE VARGAS 2 DAYS AGO, WENT TO [place] BY [employer], REPORTS ELEVATED "TRIPONEN" LEVEL, RECEIVED TWO SHOTS "THAT GAVE ME AN ANXIETY ATTACK", ADMITS LEAVING AMA FROM [facility]. THIS MORNING WOKE, FELT LIKE MY SPEECH WAS SLURRED, GENERAL "BODY" WEAKNESS/HEAVINESS - DENIES CP. ATE AT NOON, DIDN'T FEEL BETTER. NO MEDS TAKEN FOR SX. DENIES CP, N/V.
--- NOTE | 2020-07-31 16:17 | NUR ---
JO SHAW BS FOR EXAM. PT ABLE TO SPEAK IN COMPLETE SENTENCES, SPEECH CLEAR -PT W/OUT TEETH. LYING ON GURNEY, ABLE TO MOVE UPPER EXTREMETIES W/OUT PROBLEM, LEGS CROSSED. PT DENIES HX CVA. STATES SHE SAW A [employer] HYPERTRICHOLOGIST FOR POSSIBLE STENT - NO STENT INSERTED. PT STATES SHE'S HERE TO SEE IF HER TROPONIN IS STILL ELEVATED. PT ADMITS TO HX METH USE X 15 YRS, STATES SHE QUIT 1 YR AGO
[2020-07-31] MEDS ORDERED: QUET100T PO (16:24)
[2020-07-31] MEDS ORDERED: ASPIRIN 81 MG TABLET CHEW PO ONE (16:30)
[2020-07-31] MEDS ORDERED: ASPIRIN 81 MG TABLET CHEW ONE (16:33)
--- NOTE | 2020-07-31 16:34 | NUR ---
PT FOUND STANDING IN ONLY HER UNDERWEAR IN ROOM; STATES SHE'S PLUGGING IN HER CELLPHONE.
--- NOTE | 2020-07-31 16:39 | NUR ---
WATER PROVIDED TO PT (PER HER REQUEST); PT ABLE TO SWALLOW W/OUT DIFFICULTY.
[2020-07-31 17:13] LABS: BASOPHILS # (AUTO) 0.05 x10^3/uL (0-0.1); BASOPHILS % (AUTO) 1 % (0-1); EOSINOPHILS % (AUTO) 2 % (1-7); LYMPHOCYTES # (AUTO) 2.56 x10^3/uL (1-3.4); LYMPHOCYTES % (AUTO) 30 % (22-44); MD NO; MEAN CORPUSCULAR HGB CONC 33.4 g/dL (32.4-35.8); MEAN CORPUSCULAR VOLUME 77.8 fL (80-100); MEAN PLATELET VOLUME 7.8 fL (7.4-10.4); MONOCYTES # (AUTO) 0.54 x10^3/uL (0.2-0.8); MONOCYTES % (AUTO) 6 % (2-9); NEUTROPHILS % (AUTO) 60 % (42-75); PLATELET COUNT 333 x10^3/uL (130-400); RED BLOOD COUNT 6.07 x10^6/uL (3.82-5.3); RED CELL DISTRIBUTION WIDTH 14.9 % (9.6-15.2)
[2020-07-31 17:22] LABS: ALBUMIN 3.5 g/dL (3.4-5.0); ANION GAP 5 mmol/L (5-15); CALCIUM 9.2 mg/dL (8.5-10.1); CHLORIDE 105 mmol/L (98-107)
[2020-07-31 17:28] LABS: TROPONIN I 0.113 ng/mL (0.000-0.045)
--- NOTE | 2020-07-31 17:35 | NUR ---
PT REPORT TO MEL NICOLE RN. PT CARE TRANSFERRED.
--- NOTE | 2020-07-31 18:13 | NUR ---
PT ELOPED PRIOR TO BEING ABLE TO GIVEN HER PAPERWORK.
== END 2020-07-31 18:14 | disposition home or self-care (01) ==
LOC: ED 17:05
DX: F15.20 Other stimulant dependence, uncomplicated (principal); R79.89 Other specified abnormal findings of blood chemistry; I25.2 Old myocardial infarction; I25.10 Atherosclerotic heart disease of native coronary artery without angina pectoris; I10 Essential (primary) hypertension; E78.5 Hyperlipidemia, unspecified; F17.210 Nicotine dependence, cigarettes, uncomplicated; Z72.9 Problem related to lifestyle, unspecified; Z90.49 Acquired absence of other specified parts of digestive tract
CPT/HCPCS: 36415; 80048; 82040; 84484; 85025; 93005; 99284; 99406

== ENCOUNTER 2020-10-11 19:50 | Emergency (ER) | payer MEDICAID ==
[~2020-10-11 19:50] MED LIST changes: +QUET100T PO
--- NOTE | 2020-10-11 20:25 | NUR ---
NIL, NA X 1
--- NOTE | 2020-10-11 20:48 | NUR ---
NA X 2
--- NOTE | 2020-10-11 20:54 | NUR ---
TASNEEM IN LOBBY FOR TRIAGE VIRIDIANA GARCES
== END 2020-10-11 21:00 | disposition left against medical advice (07) ==
LOC: ED 20:54
DX: J02.9 Acute pharyngitis, unspecified (principal); Z53.21 Procedure and treatment not carried out due to patient leaving prior to being seen by health care provider